=== PATIENT | male | born 2000 | race Caucasian/White ===

== ENCOUNTER 2024-03-11 17:43 | Emergency (ER) | payer BC ==
[~2024-03-11] VITALS: Ht 182.9 cm; Wt 83.7 kg
[2024-03-11 20:30] VITALS: PULSE 77; RESP 16; TEMP 99.4; O2SAT 97
== END 2024-03-11 20:30 | disposition home or self-care (01) ==
LOC: FSED 17:57
DX: R50.9 Fever, unspecified (principal); M79.672 Pain in left foot; S90.32XA Contusion of left foot, initial encounter; W20.8XXA Other cause of strike by thrown, projected or falling object, initial encounter; Y92.89 Other specified places as the place of occurrence of the external cause; I34.1 Nonrheumatic mitral (valve) prolapse
CPT/HCPCS: 99284